=== PATIENT | female | born 1970 | race Hispanic/Latino ===

== ENCOUNTER 2025-04-19 10:18 | Emergency (ER) | payer OTHER ==
[2025-04-19] MEDS ORDERED: HYDROCODONE/APAP 5/325 MG TAB ONE ×2 (10:50→10:51)
[2025-04-19] MEDS ORDERED: KETOROLAC 30 MG/ML INJ ONE (10:50)
--- NOTE | 2025-04-19 11:25 | ER ---
Nurse's Notes [facility] Name: Loi Meade Age: 54 yrs Sex: Female : 1970 Arrival Date: 04/19/2025 Time: 10:18 Bed 20 Private MD: Diagnosis: Low back pain Presentation: 04/19 10:27 Chief complaint: Patient states: L back pain since Tuesday. No trauma or falls. ll1 Coronavirus screen: Client denies travel out of the [place] in the last 14 days. At this time, the client does not indicate any symptoms associated with coronavirus-19. Ebola Screen: Patient denies travel to an Ebola-affected area in the 21 days before illness onset. Initial Sepsis Screen: Does the patient meet any 2 criteria? No. Patient's initial sepsis screen is negative. Does the patient have a suspected source of infection? No. Patient's initial sepsis screen is negative. Risk Assessment: Do you want to hurt yourself or someone else? Patient reports no desire to harm self or others. Onset of symptoms was April 15, 2025. 10:27 Method Of Arrival: Ambulatory ll1 10:27 Acuity: ARIA 3 ll1 Historical: - Allergies: 10:27 No Known Allergies; ll1 - PMHx: 10:27 None; ll1 - PSHx: 10:27 Cholecystectomy; Appendectomy; ll1 - Immunization history:: Adult Immunizations up to date. - Infectious Disease History:: Denies. - Social history:: Smoking status: Patient denies any tobacco usage or history of. Screenin:00 [facility] ED Fall Risk Assessment (Adult) History of falling in the last 3 months, ar8 including since admission No falls in past 3 months (0 pts) Confusion or Disorientation No (0 pts) Intoxicated or Sedated No (0 pts) Impaired Gait No (0 pts) Mobility Assist Device Used No (0 pt) Altered Elimination No (0 pt) Score/Fall Risk Level 0 - 2 = Low Risk Oriented to surroundings, Maintained a safe environment. Abuse screen: Denies threats or abuse. Nutritional screening: No deficits noted. Tuberculosis screening: No symptoms or risk factors identified. Assessment: 10:55 General: Appears uncomfortable, Behavior is calm, cooperative. Pain: Complains of pain ar8 in lumbar area Pain currently is 8 out of 10 on a pain scale. 10:55 Pain: Pain began 2-3 days ago. Neuro: Level of Consciousness is awake, alert, obeys ar8 commands, Oriented to person, place, time, situation. Cardiovascular: Patient's skin is warm and dry. Respiratory: Airway is patent Respiratory effort is even, unlabored, Respiratory pattern is regular, symmetrical. GI: No signs and/or symptoms were reported involving the gastrointestinal system. : No signs and/or symptoms were reported regarding the genitourinary system. Musculoskeletal: Tenderness present in lumbar area Reports pain in lumbar area since 4 days ago. Injury Description: No injury or trauma. Vital Signs: 10:27 BP 145 / 96; Pulse 73; Resp 15; Pulse Ox 96% ; Weight 95.25 kg; Height 5 ft. 2 in. ; ll1 Pain 8/10; 11:00 BP 120 / 51; Pulse 73; Resp 20; Pulse Ox 97% ; Pain 8/10; ar8 11:45 BP 119 / 68; Pulse 71; Resp 18; Pulse Ox 98% on R/A; ar8 11:50 Pain 5/10; ar8 10:27 Body Mass Index 38.41 (95.25 kg, 157.48 cm) ll1 10:27 Pain Scale: Adult ll1 11:00 Pain Scale: Adult ar8 11:50 Pain Scale: Adult ar8 ED Course: 10:20 Patient arrived in ED. cj3 10:25 Brayan Powell FNP-C [facility]. dr5 10:25 Axel Alvarez MD is Attending Physician. dr5 10:28 Triage completed. ll1 10:47 Ignacio Medina, RN is Primary Nurse. ar8 11:00 Bed in low position. Call light in reach. Provided Education on: plan of care. ar8 11:00 No provider procedures requiring assistance completed. Patient did not have IV access ar8 during this emergency room visit. Administered Medications: 10:55 Drug: Ketorolac IM 30 mg IM once Route: IM; Site: left ventrogluteal; ar8 11:50 Follow up: Response: No adverse reaction; Pain is decreased ar8 10:55 Drug: HYDROcodone-acetaminophen PO 5 mg-325 mg 2 tabs PO once Route: PO; ar8 11:50 Follow up: Pain 5/10 Adult; Response: No adverse reaction; Pain is decreased ar8 10:56 Drug: Dexamethasone IM 10 mg IM once Route: IM; Site: right ventrogluteal; ar8 11:50 Follow up: Response: No adverse reaction ar8 Medication: 11:00 VIS not applicable for this client. ar8 Outcome: 11:25 Discharge ordered by . dr5 11:50 Discharged to home ambulatory, ar8 11:50 Condition: stable 11:50 Discharge instructions given to patient, family, Instructed on discharge instructions, follow up and referral plans. medication usage, Demonstrated understanding of instructions, follow-up care, medications, Prescriptions given X 3, 12:05 Patient left the ED. ar8 Signatures: Sabi Johnston, RN RN ll1 Brayan Powell, RETAIL SECURITY PROFESSIONAL-C RETAIL SECURITY PROFESSIONAL-Cdr5 Rashmi Cornejo cj3 Ignacio Medina RN RN ar8
--- NOTE | 2025-04-19 11:25 | EDPHYS ---
Physician Documentation [facility] Name: Loi Meade Age: 54 yrs Sex: Female : 1970 Arrival Date: 04/19/2025 Time: 10:18 Bed 20 Private MD: ED Physician Axel Alvarez HPI: 04/19 10:40 This 54 yrs old Female presents to ER via Ambulatory with complaints of Low dr5 Back Pain. 10:40 The patient presents with pain that is acute, with no known mechanism of injury. The dr5 symptoms are located in the low back, lumbar area. Onset: The symptoms/episode began/occurred 4 day(s) ago. Patient is a 54-year-old female with no past medical history coming in with chronic midline low back pain has been going on for the past 4 days. Patient reports that she has not fallen but bent over and heard a pop in her back in which she has had pain since. Patient did take aspirin with mild relief. Patient denies bilateral lower leg numbness, bowel or bladder incontinence, or perirectal numbness. Patient has not take anything prior to arrival. Historical: - Allergies: 10:27 No Known Allergies; ll1 - PMHx: 10:27 None; ll1 - PSHx: 10:27 Cholecystectomy; Appendectomy; ll1 - Immunization history:: Adult Immunizations up to date. - Infectious Disease History:: Denies. - Social history:: Smoking status: Patient denies any tobacco usage or history of. ROS: 10:40 Constitutional: as per hpi dr5 Exam: 10:40 Constitutional: This is a well developed, well nourished patient who is awake, alert, dr5 and in no acute distress. Head/Face: Normocephalic, atraumatic. Eyes: Pupils equal round and reactive to light, extra-ocular motions intact. Lids and lashes normal. Conjunctiva and sclera are non-icteric and not injected. Cornea within normal limits. Periorbital areas with no swelling, redness, or edema. Neck: Trachea midline, no thyromegaly or masses palpated, and no cervical lymphadenopathy. Supple, full range of motion without nuchal rigidity, or vertebral point tenderness. No Meningismus. Chest/axilla: Normal chest wall appearance and motion. Nontender with no deformity. No lesions are appreciated. Cardiovascular: Regular rate and rhythm with a normal S1 and S2. Normal PMI, no JVD. No pulse deficits. Respiratory: Lungs have equal breath sounds bilaterally, clear to auscultation. No rales, rhonchi or wheezes noted. No increased work of breathing, no retractions or nasal flaring. Back: No spinal tenderness. No costovertebral tenderness. Full range of motion. Mild tenderness to low back with palpation. Skin: Warm, dry with normal turgor. Normal color with no rashes, no lesions, and no evidence of cellulitis. MS/ Extremity: Pulses equal, no cyanosis. Neurovascular intact. Full, normal range of motion. Neuro: Awake and alert, GCS 15, oriented to person, place, time, and situation. Cranial nerves II-XII grossly intact. Motor strength 5/5 in all extremities. Sensory grossly intact. Cerebellar exam normal. Normal gait. Vital Signs: 10:27 BP 145 / 96; Pulse 73; Resp 15; Pulse Ox 96% ; Weight 95.25 kg; Height 5 ft. 2 in. ; ll1 Pain 8/10; 11:00 BP 120 / 51; Pulse 73; Resp 20; Pulse Ox 97% ; Pain 8/10; ar8 11:45 BP 119 / 68; Pulse 71; Resp 18; Pulse Ox 98% on R/A; ar8 11:50 Pain 5/10; ar8 10:27 Body Mass Index 38.41 (95.25 kg, 157.48 cm) ll1 10:27 Pain Scale: Adult ll1 11:00 Pain Scale: Adult ar8 11:50 Pain Scale: Adult ar8 MDM: 10:25 Medical Screening Exam initiated dr5 11:32 Differential diagnosis: arthritis, strain, sciatica, contusion. Data reviewed: vital dr5 signs, nurses notes. Consideration of Admission/Observation Escalation of care including admission/observation considered. Escalation considered patient found to have back pain red flag such as bowel or bladder continence. I considered the following discharge prescriptions or medication management in the emergency department I discussed and recommended Over The Counter medications, Medications were administered in the Emergency Department. See MAR. Test considered but Not performed: X-ray: X-ray considered but patient not have trauma or falls. Historians other than the Patient: Daughter/Son: . Care significantly affected by the following Social Determinants of Health: Poor access to healthcare and/or lack of insurance, Poor access to transportation, Problems related to employment. Counseling: I had a detailed discussion with the patient and/or guardian regarding the historical points, exam findings, and any diagnostic results supporting the discharge/admit diagnosis, the presence of at least one elevated blood pressure reading (>120/80) during this emergency department visit, the need for outpatient follow up, for definitive care, a family practitioner, to return to the emergency department if symptoms worsen or persist or if there are any questions or concerns that arise at home. Medication response: [place], Toradol, dexamethasone. Response to treatment: the patient's symptoms have markedly improved after treatment. Special discussion: I discussed with the patient/guardian in detail that at this point there is no indication for admission to the hospital. It is understood, however, that if the symptoms persist or worsen the patient needs to return immediately for re-evaluation. Based on the history and exam findings, there is no indication for further emergent testing or inpatient evaluation. I discussed with the patient/guardian the need to see the primary care provider for further evaluation of the symptoms. ED course: ER medications given with relief of symptoms. Recommended back pain exercises. Alternate Tylenol Motrin as needed for pain. Recommend patient follow-up primary care doctor this next week. All questions were answered. Strict ER precautions given. Administered Medications: 10:55 Drug: Ketorolac IM 30 mg IM once Route: IM; Site: left ventrogluteal; ar8 11:50 Follow up: Response: No adverse reaction; Pain is decreased ar8 10:55 Drug: HYDROcodone-acetaminophen PO 5 mg-325 mg 2 tabs PO once Route: PO; ar8 11:50 Follow up: Pain 5/10 Adult; Response: No adverse reaction; Pain is decreased ar8 10:56 Drug: Dexamethasone IM 10 mg IM once Route: IM; Site: right ventrogluteal; ar8 11:50 Follow up: Response: No adverse reaction ar8 Disposition: 13:45 Co-signature as Attending Physician, Axel Alvarez MD I reviewed the patient's care rn provided by the Advanced Practice Provider and agree with the diagnosis and treatment plan. Disposition Summary: 04/19/25 11:25 Discharge Ordered Notes: Location: Home dr5 Condition: Stable dr5 Diagnosis - Low back pain dr5 Followup: dr5 - With: Emergency Department - When: As needed - Reason: Worsening of condition Followup: dr5 - With: Private Physician - When: 1 - 2 days - Reason: Recheck today's complaints, Continuance of care, Re-evaluation by your physician Discharge Instructions: - Discharge Summary Sheet dr5 - Acute Back Pain, Adult dr5 Forms: - Medication Reconciliation Form dr5 - Prescription Opioid Use dr5 - Patient Portal Instructions dr5 - Leadership Thank You Letter dr5 Prescriptions: - Cyclobenzaprine 10 mg Oral Tablet - take 1 tablet ORAL route every 8 hours As needed; 30 tablet; Refills: 0, dr5 Product Selection Permitted - Tramadol 50 mg Oral Tablet - take 1 tablet ORAL route every 8 hours as needed; 12 tablet; Refills: 0, dr5 Product Selection Permitted - Medrol (Kun) 4 mg Oral Tablets, Dose Pack - take 1 tablet ORAL route as directed - follow package instructions; 1 packet; dr5 Refills: 0, Product Selection Permitted Signatures: Axel Alvarez MD MD rn Lewis, Lynsay RN RN ll1 Brayan Powell, WARP TYING MACHINE KNOTTER-C WARP TYING MACHINE KNOTTER-Cdr5 Ignacio Medina RN RN ar8
[2025-04-19 12:11] VITALS: BP 119/68; O2SAT 98
== END 2025-04-19 12:05 | disposition home or self-care (01) ==
LOC: ER 10:18
DX: M54.50 Low back pain, unspecified (principal)
CPT/HCPCS: 96372; 99284; J1885; J1100